=== PATIENT | female | born 1945 | race Caucasian/White ===

== ENCOUNTER 2023-04-16 21:31 | Observation (INO) | payer MEDICARE, SELFPAY ==
[2023-04-16] VITALS (12 sets, daily range): BP systolic 127–165; BP diastolic 47–62; PULSE 81–98; RESP 14–24; TEMP 36.7; O2SAT 98–100
[2023-04-16 22:12] LABS: Basophils Absolute Auto 0.1 K/mm3 (0.0-0.1); Eosinophils Absolute Auto 0.5 K/mm3 (0-0.3); Eosinophils Percent Auto 7.1 % (0-4.4); Hematocrit 23.9 % (37.0-47.0); Immature Granulocyte Absolute 0.01 K/mm3 (0.00-0.031); Immature Granulocyte Percent A 0.1 % (0-0.5); Lymphocytes Absolute Auto 2.25 K/mm3 (0.9-3.2); Lymphocytes Percent Auto 33.4 % (18.3-44.2); Mean Corpuscular HGB Conc 25.5 g/dl (32-36); Mean Corpuscular Hemoglobin 15.9 pg (26-34); Mean Corpuscular Volume 62.4 fl (80-100); Mean Platelet Volume 9.6 fl (7.4-10.4); Monocytes Absolute Auto 0.8 K/mm3 (0.1-0.6); Monocytes Percent Auto 11.9 % (2.6-8.5); Neutrophils Absolute Auto 3.1 K/mm3 (1.3-6.7); Neutrophils Percent Auto 46.5 % (45.5-73.1); Nucleated Red Blood Cells Perc 0.3 % (0.0-0.2); Platelet Count Result 569 k/mm3 (150-375); Red Blood Count 3.83 M/mm3 (4.2-5.4); Red Cell Distribution Width 21.7 % (11.5-14.5); White Blood Count 6.7 K/mm3 (4.5-10.0)
[2023-04-16 22:16] LABS: Hemoglobin 6.1 g/dL (12.0-15.0)
[2023-04-16 22:22] LABS: Prothrombin Time 13.1 Seconds (11.1-14.7)
[2023-04-16 22:23] LABS: Partial Thromboplastin Time 28.1 SECONDS (22.3-36.8)
[2023-04-16 22:29] LABS: Anisocytosis 2+ (NORMAL); Hypochromasia 2+ (NORMAL); Microcytosis 1+ (NORMAL); Ovalocytes 1+ (NORMAL); Platelet Estimate Increased (Adequate); Schistocytes Rare (NORMAL); Target Cells 1+ (NORMAL)
[2023-04-16 22:40] LABS: Alanine Aminotransferase 22 U/L (6-35); Alkaline Phosphatase 88 U/L (38-126); Anion Gap 6 mmol/L (8-16); Aspartate Amino Transferase 31 U/L (14-36); Bilirubin,Total 0.2 mg/dL (0.2-1.3); Blood Urea Nitrogen 18 mg/dL (7-17); Calcium 8.7 mg/dL (8.4-10.2); Carbon Dioxide 25 mmol/L (22-30); Chloride 107 mmol/L (98-107); Estimated CRCL calculation 58 ml/min; Estimated Glomerular Filt Rate > 60; Glucose 106 mg/dL (65-110); Potassium 4.1 mmol/L (3.4-5.0); Sodium 138 mmol/L (137-145)
--- NOTE | 2023-04-16 22:44 | ECG_ITS ---
Measurements Intervals [place] Rate: 88 P: 11 VA: 168 QRS: 30 QRSD: 125 T: 52 QT: 380 QTc: 461 Interpretive Statements SINUS RHYTHM WITH SINUS ARRHYTHMIA POSSIBLE LEFT ATRIAL ENLARGEMENT [-0.1mV P-WAVE IN V1/V2] RIGHT BUNDLE BRANCH BLOCK [120+ ms QRS DURATION, UPRIGHT V1, 40+ ms S IN I/aVL/V4/V5/V6] ABNORMAL ECG NO PREVIOUS ECG AVAILABLE FOR COMPARISON Electronically Signed On 04-17-2023 9:37:47 CDT by Migel Boyd M.D.
--- NOTE | 2023-04-16 22:58 | PC.NURSE ---
added on pt. blood work
--- NOTE | 2023-04-16 23:03 | ED.RECABL ---
HPI - Recheck/Abnormal Lab/Rx General Chief Complaint: Recheck/Abnormal Lab/Rx <NACHO Anguiano Last Filed: 04/17/23 00:26> Stated Complaint: my doctor said i need blood <NACHO Anguiano Last Filed: 04/17/23 00:26> Time Seen by Provider: 04/16/23 22:02 <NACHO Anguiano Last Filed: 04/17/23 00:26> Source: patient <NACHO Anguiano Last Filed: 04/17/23 00:26> Mode of arrival: ambulatory <NACHO Anguiano Last Filed: 04/17/23 00:26> Limitations: no limitations <NACHO Anguiano Last Filed: 04/17/23 00:26> History of Present Illness HPI narrative: Patient is a 78-year-old female who presents to the ED with report of abnormal labs. Patient saw a new PCP today and had basic blood work obtained, which showed low hemoglobin. She was then referred here for further evaluation. Patient reports she has had dyspnea with exertion intermittently for the last 1 year or so. She also reports having intermittent dizziness and lightheadedness, no significant aggravating or alleviating factors to this. She does not routinely follow with a primary care doctor. She states she last had blood work performed last September, but never heard the results of this. Patient denies any recent bleeding, denies rectal bleeding, melena, hematuria, epistaxis, vaginal bleeding. She has never required blood transfusion in the past. She is not on any blood thinners. Patient has had several previous colonoscopies. She states that she had a history of hereditary polyps, but last had a colonoscopy around 7 years ago and had no polyps at that time. Denies any abdominal pain, nausea, vomiting, chest pain, fevers. Patient has remote history of spontaneous intracranial hemorrhage which was treated at [facility]. <NACHO Anguiano Last Filed: 04/17/23 00:26> Related Data Home Medications: Home Medications Medication Instructions Recorded Confirmed acetaminophen 500 mg tablet 500 mg PO Q6H PRN Pain 04/16/23 04/17/23 (Tylenol Extra Strength) ascorbic acid (vitamin C) 1,000 mg 1 g PO DAILY 04/16/23 04/17/23 capsule calcium carbonate 600 mg-vitamin 1 tablet PO DAILY 04/16/23 04/17/23 D3 10 mcg (400 unit) chewable tablet (Calcium 600 with Vitamin D3) cetirizine 10 mg capsule (Allergy 10 mg PO DAILY 04/16/23 04/17/23 Relief (cetirizine)) fish oil-dha-epa 1,200 mg-144 1 cap PO DAILY 04/16/23 04/17/23 mg-216 mg capsule vitamin E (dl, acetate) 180 mg 180 mg PO DAILY 04/16/23 04/17/23 (400 unit) capsule omeprazole 20 mg capsule,delayed 20 mg PO DAILY 04/17/23 04/17/23 release <Michelle Darnell PA-C - Last Filed: 04/17/23 00:26> Allergies/Adverse Reactions: Allergies Allergy/AdvReac Type Severity Reaction Status Date / Time No Known Allergies Allergy Unverified 04/16/23 13:06 <Michelle Darnell PA-C - Last Filed: 04/17/23 00:26> Review of Systems Review of Systems: CONSTITUTIONAL: Denies fever, chills, or sweats. ENT: See HPI. CARDIOVASCULAR: Denies chest pain, palpitations, or edema. RESPIRATORY: See HPI. GASTROINTESTINAL: See HPI. GENITOURINARY: Denies dysuria or hematuria. SKIN: Denies rash or itching. MUSCULOSKELETAL: Denies back pain, joint pain, or myalgia. NEUROLOGIC: See HPI. <Michelle Darnell PA-C - Last Filed: 04/17/23 00:26> All systems reviewed & are unremarkable except as noted in HPI and below <NACHO Anguiano Last Filed: 04/17/23 00:26> [facility] Past Medical History Medical History: Medical History (Updated 04/17/23 @ 01:13 by Duane Skaggs MD) Allergies Arthritis Brain bleed Breast cancer GERD (gastroesophageal reflux disease) History of breast cancer in adulthood History of cerebral hemorrhage <NACHO Anguiano Last Filed: 04/17/23 00:26> Surgical History Surgical History: Surgical History (Re
[2023-04-16 23:30] LABS: Iron 18 ug/dL (37-170)
[2023-04-16 23:34] LABS: Lactate Dehydrogenase 182 U/L (120-246)
[2023-04-16 23:39] LABS: Percent Iron Saturation 4 % (20-50)
[2023-04-16 23:40] LABS: NT Pro B Type Natriuretic Pept 529 pg/mL (19.9-100); Troponin I < 0.012 ng/mL (0.000-0.034)
--- NOTE | 2023-04-16 23:40 | PM.IMHP ---
H&P: HPI History of Present Illness Date/Time: 04/16/23 23:40 Chief Complaint: Low hemoglobin Narrative: This is a 78-year-old female with known significant past medical history patient presents to the emergency room after lab work demonstrated a low hemoglobin of 6 was asked by her primary care physician to come to the hospital. Patient noted that she has been fatigued, tired, decreased stamina, shortness of breath at mild exertion, denies any melena any bright red blood per rectum on no coffee-ground emesis no hematemesis no changes in bowel habits. Preliminary workup was significant for hemoglobin of 6 hematocrit 23 MCV 62. Patient is being admitted for further evaluation management and treatment. Review of Systems Review of Systems: Low hemoglobin, fatigue, decreased stamina shortness of breath with mild activity Constitutional: Constitutional: Denies chills, Reports fatigue, Denies fever(s), Denies frequent falls, Reports lethargy, Denies malaise, Denies night sweats and Denies poor appetite Eyes: Eyes: Denies change in vision ENT: Denies dysphagia, Denies vertigo, Denies dizziness and Denies odynophagia Cardiovascular: Cardiovascular: Denies chest pain, Denies leg edema, Denies radiating jaw, neck or arm pain, Denies palpitations and Reports dyspnea on exertion Respiratory: Respiratory: Denies chest congestion, Denies cough and Denies excessive phlegm production Gastrointestinal: Gastrointestinal: Denies abdominal pain, Denies dyspepsia, Denies heartburn, Denies diarrhea, Denies nausea and Denies vomiting Genitourinary: Genitourinary: Denies dysuria Musculoskeletal: Musculoskeletal: Denies back pain and Denies myalgias Integumentary/Breasts: Skin/Breast: Denies rash Neurologic: Denies focal weakness and Denies Sensory deficit (Neuro) Psychiatric: Psychiatric: Reports no additional psychiatric complaints and Reports as per HPI Endocrine: Endocrine: Denies cold intolerance, Denies flushing, Denies heat intolerance, Denies polyphagia, Denies polydipsia and Denies palpitations Hematologic/Lymphatic: Hematologic/Lymphatic: Reports no additional hematologic/lymphatic complaints, Reports as per HPI, Denies easy bleeding, Denies easy bruising and Denies lymphadenopathy Allergic/Immunologic: Allergic/Immunologic: Reports no additional allergic/immunologic complaints and Reports as per HPI [facility] Past Medical History Medical History (Updated 04/17/23 @ 01:13 by Duane Skaggs MD) Allergies Arthritis Brain bleed Breast cancer GERD (gastroesophageal reflux disease) History of breast cancer in adulthood History of cerebral hemorrhage Surgical History Surgical History H/O: hysterectomy History of bunionectomy History of cataract removal with insertion of prosthetic lens Family History Family History (Updated 04/16/23 @ 12:58 by Christiana Cohen CMA) Father Cancer Mother Cerebrovascular accident Social History Social History Smoking status: Former smoker Additional smoking assessment comments: smoked only 1 year when she was 17 Alcohol intake: never Substance use: never Substance use type: does not use Lack of Transportation: No Lack of Food: Never True Current Housing: I Have Housing Concerned About Future Housing: No Difficulty Paying Gas/Electric Bills: No Difficulty Paying for Meds: No Currently Unemployed: No Education: High School Diploma/GED Difficulty w/ Childcare or Family Care: No Living arrangements: alone Spiritual care concerns: No Agree to blood products: Yes Meds Home Medications and Allergies Home Medications Medication Instructions Recorded Confirmed Type acetaminophen 500 mg tablet 500 mg PO Q6H PRN Pain 04/16/23 04/17/23 History (Tylenol Extra Strength) ascorbic acid (vitamin C) 1,000 mg 1 g PO DAILY 04/16/23 0
[2023-04-16 23:41] LABS: Transferrin 353 mg/dL (206-381)
[2023-04-17] VITALS (13 sets, daily range): BP systolic 119–144; BP diastolic 41–55; PULSE 75–91; RESP 14–20; TEMP 36.3–37.1; O2SAT 97–100
[2023-04-17 00:06] LABS: Ferritin 3.85 ng/mL (11.1-264)
--- NOTE | 2023-04-17 00:33 | ADMGEN ---
This patient, Mona Mann, was admitted to Medical Room 244-. Patient/family oriented to hospital policies and general routines including ID bracelet, bed and alarms, visiting hours, pain management, procedures, bathroom and other care routines, personal items, smoking policy, room service/diet, and visiting hours. Information on how to activate the Rapid Response Team has been discussed. Patient/Family are encouraged to report perceived risks to care and to ask questions if they do not understand what they are told or what they should do.
[2023-04-17] MEDS: SODIUM CHLORIDE 0.9% IV 250 ML 30 ML IV CONT (00:49)
[2023-04-17] MEDS: ACETAMINOPHEN 500 MG TABLET 1000 MG PO ×3 (03:33→16:51)
[2023-04-17] MEDS: LORATADINE 10 MG TABLET PO ×2 (06:35→08:17)
[2023-04-17 08:02] LABS: Hematocrit 30.2 % (37.0-47.0); Hemoglobin 8.5 g/dL (12.0-15.0)
[2023-04-17] MEDS: PANTOPRAZOLE 40 MG TABLET PO (08:16)
[2023-04-17] MEDS: ASCORBIC ACID 500 MG TABLET 1000 MG PO (08:16)
[2023-04-17] MEDS: VITAMIN E 400 UNIT CAPSULE PO (08:17)
--- NOTE | 2023-04-17 10:33 | PM.IMPN ---
Progress Note: A&P Assessment and Plan (1) Hypochromic microcytic anemia: Code(s): D50.9 - Iron deficiency anemia, unspecified Status: Acute Assessment and Plan: Hemoglobin stable after 2 units PRBC transfusion Iron studies in progress Transfuse as needed to keep hemoglobin above 7 GI consulted Continue PPI (2) GERD (gastroesophageal reflux disease): Code(s): K21.9 - Gastro-esophageal reflux disease without esophagitis Status: Acute Assessment and Plan: PPI Subjective Date/time seen: 04/17/23 10:33 Interval history: Patient currently asymptomatic Review of Systems Review of Systems: Low hemoglobin, fatigue, decreased stamina shortness of breath with mild activity Constitutional: Constitutional: Denies chills, Reports fatigue, Denies fever(s), Denies frequent falls, Reports lethargy, Denies malaise, Denies night sweats and Denies poor appetite Eyes: Eyes: Denies change in vision ENT: Denies dysphagia, Denies vertigo, Denies dizziness and Denies odynophagia Cardiovascular: Cardiovascular: Denies chest pain, Denies leg edema, Denies radiating jaw, neck or arm pain, Denies palpitations and Reports dyspnea on exertion Respiratory: Respiratory: Denies chest congestion, Denies cough and Denies excessive phlegm production Gastrointestinal: Gastrointestinal: Denies abdominal pain, Denies dyspepsia, Denies heartburn, Denies diarrhea, Denies nausea and Denies vomiting Genitourinary: Genitourinary: Denies dysuria Musculoskeletal: Musculoskeletal: Denies back pain and Denies myalgias Integumentary/Breasts: Skin/Breast: Denies rash Neurologic: Denies focal weakness and Denies Sensory deficit (Neuro) Psychiatric: Psychiatric: Reports no additional psychiatric complaints and Reports as per HPI Endocrine: Endocrine: Denies cold intolerance, Denies flushing, Denies heat intolerance, Denies polyphagia, Denies polydipsia and Denies palpitations Hematologic/Lymphatic: Hematologic/Lymphatic: Reports no additional hematologic/lymphatic complaints, Reports as per HPI, Denies easy bleeding, Denies easy bruising and Denies lymphadenopathy Allergic/Immunologic: Allergic/Immunologic: Reports no additional allergic/immunologic complaints and Reports as per HPI Exam Narrative: Patient is laying in bed Const: General: comfortable, no acute distress, well developed, alert, awake and average body habitus Nutritional Appearance: average body habitus Orientation/consciousness: patient oriented x3 Other: Generalized pallor HENMT: Head: normal to inspection, normocephalic and atraumatic Ears: hearing grossly normal bilaterally Face/Nose/Sinus: normal facial exam Face and sinus: normal facial exam Eyes: General: appearance normal, both eyes and all related structures Pupils: Equal, round and reactive pupils present EOM: EOMs intact bilaterally Neck: Neck: full ROM, no lymphadenopathy and no JVD Thyroid: thyroid normal Lymphatic: no lymphadenopathy noted Resp: Effort & Inspection: normal respiratory effort and able to speak in complete sentences Auscultation: clear to auscultation bilaterally Cardio: Jugular venous distension: no JVD Rate: regular rate Rhythm: regular rhythm Heart sounds: S1 normal heart sound present and S2 normal heart sound present GI: GI Palp: Yes Soft to palpation and Yes No hepatosplenomegaly present : General: Yes deferred Skin: Rashes: no rashes Wounds: no wounds Neuro: General: patient oriented x3 and CN's II-XI intact bilaterally Cranial nerves: Yes CN's II-XII intact bilaterally and Yes Equal, round and reactive pupils present Cognition (Neuro): normal cognition Speech: normal speech Gait exam (Neuro): Unable to assess gait Motor exam (neuro): 5/5 motor strength present throughout Extrem: General: normal to inspection, full ROM, no joint enlargement and no pedal edema Objective Data Vital Signs Vital Signs: Vital Signs - 24 hr /06
--- NOTE | 2023-04-17 15:27 | WPDGICN ---
Assessment and Plan Assessment and plan (1) Symptomatic anemia: Code(s): D64.9 - Anemia, unspecified Status: Acute Assessment and Plan: symptomatic and severe anemia noted that she has been taking asa in daily basis to control pain, ? gastritis, ulcers, etc will proceed with egd and colonoscopy tomorrow (2) Fatigue: Code(s): R53.83 - Other fatigue Status: Acute Assessment and Plan: from anemia (3) Intermittent lightheadedness: Code(s): R42 - Dizziness and giddiness Status: Acute Assessment and Plan: better now after treatment (4) GERD (gastroesophageal reflux disease): Code(s): K21.9 - Gastro-esophageal reflux disease without esophagitis Status: Acute Assessment and Plan: on ppi (5) Aspirin long-term use: Code(s): Z79.82 - skilled nursing (current) use of aspirin Status: Acute Assessment and Plan: hold asa use for now GI Consult Note Consult date/time: 04/17/23 15:27 Reason for consult: JAYSHREE HPI: Mona Mann is a 78 year old female with significant past medical history of gerd on nexium, tums prn and also arthritis for which she has been taking for a while tylenol and aspirin up to 3-4 times a day to control pain. She came to the emergency room after lab work by her PCP that showed low hemoglobin of 6 and was asked by her primary care physician to come to the hospital.? She has been fatigued, tired, decreased stamina, shortness of breath at mild exertion, denies any melena any bright red blood per rectum. She had colonoscopies and last one about 7 years ago.?Preliminary workup was significant for hemoglobin of 6 hematocrit 23 MCV 62. Review of Systems Constitutional: Constitutional: Reports lethargy Eyes: Eyes: Denies blurry vision ENT: Reports Normal hearing present Cardiovascular: Cardiovascular: Denies chest pain Respiratory: Respiratory: Reports dyspnea on exertion Gastrointestinal: Gastrointestinal: Denies abdominal pain Genitourinary: Genitourinary: Denies urinary incontinence Musculoskeletal: Musculoskeletal: Reports arthralgias Integumentary/Breasts: Skin/Breast: Denies rash Neurologic: Denies Abnormal speech present Psychiatric: Psychiatric: Denies anxiety [facility] Past Medical History Medical History (Updated 04/17/23 @ 15:33 by Blayne Cifuentes MD) Allergies Arthritis Aspirin long-term use Brain bleed Breast cancer GERD (gastroesophageal reflux disease) History of breast cancer in adulthood History of cerebral hemorrhage Surgical History Surgical History H/O: hysterectomy History of bunionectomy History of cataract removal with insertion of prosthetic lens Family History Family History (Updated 04/16/23 @ 12:58 by Christiana Cohen CMA) Father Cancer Mother Cerebrovascular accident Social History Social History Smoking status: Former smoker Additional smoking assessment comments: smoked only 1 year when she was 17 Alcohol intake: never Substance use: never Substance use type: does not use Lack of Transportation: No Lack of Food: Never True Current Housing: I Have Housing Concerned About Future Housing: No Difficulty Paying Gas/Electric Bills: No Difficulty Paying for Meds: No Currently Unemployed: No Education: High School Diploma/GED Difficulty w/ Childcare or Family Care: No Living arrangements: alone Spiritual care concerns: No Agree to blood products: Yes Meds Home Medications and Allergies Home Medications Medication Instructions Recorded Confirmed Type acetaminophen 500 mg tablet 500 mg PO Q6H PRN Pain 04/16/23 04/17/23 History (Tylenol Extra Strength) ascorbic acid (vitamin C) 1,000 mg 1 g PO DAILY 04/16/23 04/17/23 History capsule calcium carbonate 600 mg-vitamin 1 tablet PO
[2023-04-17] MEDS: BISACODYL 5 MG TABLET EC 20 MG PO (17:00)
[2023-04-17] MEDS: polyethylene glycoL 3350 238 GM BOTTLE PO (17:56)
[2023-04-18] VITALS (7 sets, daily range): BP systolic 123–150; BP diastolic 46–67; PULSE 75–92; RESP 15–23; TEMP 36.2–36.6; O2SAT 98–100
[2023-04-18] MEDS: ACETAMINOPHEN 500 MG TABLET 1000 MG PO (07:33)
--- NOTE | 2023-04-18 09:10 | WPDANESEPPF ---
Anes - Initial Pre Proc Eval Procedure: Operation Date: 04/18/23 11:45 Proposed Procedures p Esophagogastroduodenoscopy & Colonoscopy - Blayne Cifuentes MD Date/Time: 04/18/23 09:10 Surgeon: Shin Morales MD Pre Op Diagnosis: Symptomatic Anemia/CISSE/Lightheadedness Patient Data Age: 78 Gender: F Height: 1.63 m Weight: 75 kg Last Vital Signs Temp 36.6 C 04/18/23 06:00 Pulse 92 04/18/23 06:00 Resp 18 04/18/23 06:00 BP 123/46 L 04/18/23 06:00 Pulse Ox 98 04/18/23 08:00 O2 Del Method Room Air 04/18/23 08:00 Allergies Allergy/AdvReac Type Severity Reaction Status Date / Time No Known Allergies Allergy Unverified 04/16/23 13:06 Home Medications Medication Instructions Recorded Confirmed Type acetaminophen 500 mg tablet 500 mg PO Q6H PRN Pain 04/16/23 04/17/23 History (Tylenol Extra Strength) ascorbic acid (vitamin C) 1,000 mg 1 g PO DAILY 04/16/23 04/17/23 History capsule calcium carbonate 600 mg-vitamin 1 tablet PO DAILY 04/16/23 04/17/23 History D3 10 mcg (400 unit) chewable tablet (Calcium 600 with Vitamin D3) cetirizine 10 mg capsule (Allergy 10 mg PO DAILY 04/16/23 04/17/23 History Relief (cetirizine)) fish oil-dha-epa 1,200 mg-144 1 cap PO DAILY 04/16/23 04/17/23 History mg-216 mg capsule vitamin E (dl, acetate) 180 mg 180 mg PO DAILY 04/16/23 04/17/23 History (400 unit) capsule omeprazole 20 mg capsule,delayed 20 mg PO DAILY 04/17/23 04/17/23 History release Laboratory Tests 04/18/23 08:38 Hgb Pending Hct Pending Patient hx anesthesia problems: none Family hx anesthesia problems: none Results Review: All pre-operative results and documents have been reviewed as part of the pre-operative evaluation. [facility] Past Medical History Medical History (Updated 04/17/23 @ 15:33 by Blayne Cifuentes MD) Allergies Arthritis Aspirin long-term use Brain bleed Breast cancer GERD (gastroesophageal reflux disease) History of breast cancer in adulthood History of cerebral hemorrhage Surgical History Surgical History H/O: hysterectomy History of bunionectomy History of cataract removal with insertion of prosthetic lens Family History Family History (Updated 04/16/23 @ 12:58 by Christiana Cohen [facility]) Father Cancer Mother Cerebrovascular accident Social History Social History Smoking status: Former smoker Additional smoking assessment comments: smoked only 1 year when she was 17 Alcohol intake: never Substance use: never Substance use type: does not use Lack of Transportation: No Lack of Food: Never True Current Housing: I Have Housing Concerned About Future Housing: No Difficulty Paying Gas/Electric Bills: No Difficulty Paying for Meds: No Currently Unemployed: No Education: High School Diploma/GED Difficulty w/ Childcare or Family Care: No Living arrangements: alone Spiritual care concerns: No Agree to blood products: Yes Anes - Eval Final PreProcedure Day of Procedure 04/18/23 09:10 Patient weight: overweight Heart: regular rate and rhythm Lungs: clear to auscultation and normal air movement Airway: Mallampati scale class II Neurological: alert and oriented Last oral intake: >/= 8 hours ASA classification: III Emergent: no Anesthetic plan: proceed Anesthesia type and monitoring: general GIVS Results Review: All pre-operative results and documents have been reviewed as part of the pre-operative evaluation. Informed Consent: The patient's anesthetic plan and its attendant risks and benefits were discussed with the patient/family/POA. Questions were solicited and answers provided to the satisfaction of the patient/family/POA.
[2023-04-18 09:13] LABS: Hematocrit 33.2 % (37.0-47.0)
--- NOTE | 2023-04-18 10:29 | PM.IMPN ---
Progress Note: A&P Assessment and Plan (1) Hypochromic microcytic anemia: Code(s): D50.9 - Iron deficiency anemia, unspecified Status: Acute Assessment and Plan: Hemoglobin stable after 2 units PRBC transfusion Iron studies in progress Transfuse as needed to keep hemoglobin above 7 GI consulted Continue PPI Plan for EGD and colonoscopy today (2) GERD (gastroesophageal reflux disease): Code(s): K21.9 - Gastro-esophageal reflux disease without esophagitis Status: Acute Assessment and Plan: Continue pPI Subjective Date/time seen: 04/18/23 10:29 Interval history: No complaints at this time Review of Systems Constitutional: Constitutional: Reports lethargy Eyes: Eyes: Denies blurry vision ENT: Reports Normal hearing present Cardiovascular: Cardiovascular: Denies chest pain Respiratory: Respiratory: Reports dyspnea on exertion Gastrointestinal: Gastrointestinal: Denies abdominal pain Genitourinary: Genitourinary: Denies urinary incontinence Musculoskeletal: Musculoskeletal: Reports arthralgias Integumentary/Breasts: Skin/Breast: Denies rash Neurologic: Denies Abnormal speech present Psychiatric: Psychiatric: Denies anxiety Exam Const: General: comfortable and no acute distress HENMT: Face/Nose/Sinus: Normal nares present Eyes: General: appearance normal, both eyes and all related structures Neck: Neck: no JVD Resp: Auscultation: clear to auscultation bilaterally Cardio: Rate: regular rate Rhythm: regular rhythm GI: Inspection: non-distended GI Palp: Yes Soft to palpation and No Tenderness to palpation present (GI) Auscultation: normal bowel sounds Skin: Other: pale Neuro: General: gait normal Speech: normal speech Extrem: General: normal to inspection Psych: Mental Status: mental status grossly normal Objective Data Vital Signs Vital Signs: Vital Signs - 24 hr 04/17/23 14:40 04/17/23 19:56 04/18/23 06:00 Temperature 97.8 F 97.4 F L 97.8 F Pulse Rate 75 78 92 Respiratory Rate 14 18 18 Blood Pressure 121/48 L 144/55 H 123/46 L Pulse Oximetry 98 97 98 Oxygen Delivery 04/18/23 08:00 Temperature Pulse Rate Respiratory Rate Blood Pressure Pulse Oximetry 98 Oxygen Delivery Room Air Intake/Output Intake/Output: Intake & Output 04/15/23 04/16/23 04/17/23 04/18/23 23:59 23:59 23:59 23:59 Intake Total 1720 / 1720 Output Total 2650 / 2650 Balance -930 / -930 Meds/Results Medications: Active Medications Generic Name Dose Route Start Last Admin Trade Name Freq PRN Reason Stop Dose Admin Acetaminophen 500 mg 04/17/23 01:10 Acetaminophen 500 Mg Tablet PO Q6H PRN Pain Acetaminophen 1,000 mg 04/17/23 01:11 04/18/23 07:33 Acetaminophen 500 Mg Tablet PO 1,000 mg Q6H PRN Administration Mild Pain (1-3) or Fever Al Hydrox/Mg Hydrox/Simethicone 30 ml 04/17/23 01:11 Mag Hydrox/Al Hydrox/Simeth 30 Ml Udc PO Q6H PRN Indigestion Ascorbic Acid 1,000 mg 04/17/23 09:00 04/17/23 08:16 Ascorbic Acid 500 Mg Tablet PO 1,000 mg QAM JOSEFA Administration Calcium Carbonate 500 mg 04/17/23 09:00 04/17/23 08:16 Calcium/Vitamin D 500 Mg Tablet PO 500 mg QAM JOSEFA Administration Fish Oil 1 gm 04/17/23 09:00 04/17/23 16:51 Ozan 3 Polyunsat Fatty Acids 1 Gm Cap PO 05/17/23 08:59 Not Given DAILY JOSEFA Loratadine 10 mg 04/17/23 09:00 04/17/23 08:17 Loratadine 10 Mg Tablet PO 10 mg QAM JOSEFA Administration Ondansetron HCl 4 mg 04/17/23 01:11 Ondansetron Inj 4 Mg/2 Ml Vial IV PUSH Q6H PRN Nausea And Vomiting Pantoprazole Sodium 40 mg 04/17/23 09:00 04/17/23 08:16 Pantoprazole 40 Mg Tablet PO 40 mg QAM JOSEFA Administration Polyethylene Glycol 17 gm 04/17/23 01:11 Polyethylene Glycol 3350 17 Gm Powd.Pack PO QAM PRN Constipation Vitamin E 400 unit 04/17/23 09:00 04/17/23 08:17 Vitamin
[2023-04-18] MEDS: LACTATED RINGERS 1,000 ML 150 ML IV CONT (11:30)
--- NOTE | 2023-04-18 12:26 | SUR.OPER ---
colon start 1214 and stop 1226
--- NOTE | 2023-04-18 14:45 | PM.DS ---
DS: Admitting Diagnosis Discharge Date 04/18/23 Admitting Diagnosis Anemia DS: Discharge Diagnosis Discharge Diagnosis (1) Hypochromic microcytic anemia: Code(s): D50.9 - Iron deficiency anemia, unspecified Status: Acute DS: Summary Hospital Course Hospital Course: Patient was admitted with Anemia. Iron studies showed Iron def. anemia. 2 units PRBC were transfused after which Hb remained stable. GI was consulted. patient underwent EGD/colonoscopy. EGD showed esophageal ulcer and hiatal hernia. colonoscopy showed diverticulosis and internal hemorrhoids. patient ok to be discharged home with PPI BID. f/u EGD on 3-4 months to see resolution of ulcers. Time Spent with Patient Time attestation: Total time spent providing and/or coordinating discharge services: DS: Data Data Completed and Pending Pending studies at discharge: Pending at discharge 04/18/23 12:27 Surgical [PTH] Routine Labs on day of discharge: Labs from last 24 hours 04/18/23 08:38 Hgb 9.0 L Hct 33.2 L Discharge Plan Discharge Consulting providers: Michelle Darnell; Blayne Cifuentes Discharging Clinician: Shin Morales Anticipated Discharge Date/Time: 04/18/23 14:44 Patient Disposition: Home, Self-Care Activity: no preference Diet: heart healthy Patient Instructions: Antibiotic Form Stand Alone Forms: General Discharge Information Follow-up/Referrals: Blayne Cifuentes MD [Physician] - Jc Crespo DO [Primary Care Provider] - Discharge Medications: New pantoprazole 40 mg Tablet,Delayed Release (Dr/Ec) 40 mg PO Q12HR Qty: 60 0RF Continued acetaminophen [Tylenol Extra Strength] 500 mg tablet 500 mg PO Q6H PRN (Reason: Pain) Allergy Relief (cetirizine) 10 mg capsule 10 mg PO DAILY Calcium 600 with Vitamin D3 600 mg-10 mcg (400 unit) tablet,chewable 1 tablet PO DAILY ascorbic acid (vitamin C) 1,000 mg capsule 1 g PO DAILY vitamin E (dl, acetate) 180 mg (400 unit) capsule 180 mg PO DAILY fish oil-dha-epa 1,200-144-216 mg capsule 1 cap PO DAILY omeprazole 20 mg Capsule,Delayed Release(Dr/Ec) 20 mg PO DAILY Date of admission: 06/06/23 23:12 Primary Care Provider: Jc Crespo Admitting Provider: Duane Skaggs V. Attending physician on admission: Shin Morales Condition: Stable
== END 2023-04-18 15:10 | disposition home or self-care (01) ==
LOC: ANHED 23:12 → ANH2MED 23:51
PROVIDERS: Emergency Medicine; Internal Medicine Gastroenterology; Admitting Provider Internal Medicine; Emergency Provider Physician Assistant; PCP Internal Medicine; Visit Provider Hospitalist
PROC: 0DJ08ZZ Inspection of Upper Intestinal Tract, Via Natural or Artificial Opening Endoscopic (ICD-10-PCS; CPT 43235; principal; 2023-04-18 11:45)
DX: K22.10 Ulcer of esophagus without bleeding (principal); K44.9 Diaphragmatic hernia without obstruction or gangrene; K25.9 Gastric ulcer, unspecified as acute or chronic, without hemorrhage or perforation; K57.30 Diverticulosis of large intestine without perforation or abscess without bleeding; K64.8 Other hemorrhoids; D50.9 Iron deficiency anemia, unspecified; K21.9 Gastro-esophageal reflux disease without esophagitis; R06.00 Dyspnea, unspecified; R53.83 Other fatigue; R42 Dizziness and giddiness; R79.89 Other specified abnormal findings of blood chemistry; R94.31 Abnormal electrocardiogram [ECG] [EKG]; Z86.79 Personal history of other diseases of the circulatory system; Z87.891 Personal history of nicotine dependence; Z79.1 Long term (current) use of non-steroidal anti-inflammatories (NSAID); E66.3 Overweight; Z68.28 Body mass index [BMI] 28.0-28.9, adult; Z79.82 Long term (current) use of aspirin; Z79.899 Other long term (current) drug therapy; Z82.3 Family history of stroke
CPT/HCPCS: 43239; 45378; 36415; 36430; 80053; 80061; 82172; 82607; 82728; 82746; 83540; 83550; 83615; 83880; 84443; 84466; 84484; 85014; 85018; 85025; 85610; 85730; 86850; 86900; 86901; 86923; 87081; 88305; 88342; 93005; 99285; A9270; G0378; J2704; J7050; J7120; P9016

== ENCOUNTER 2023-04-25 07:35 | Outpatient (RCR) | payer MEDICARE, SELFPAY ==
--- NOTE | 2023-04-25 10:33 | PTOPEVDC ---
Assessment and note entered by Baylee Hernandez, PT, DPT Thank you for referring Mona Mann to [facility].? An evaluation has been completed. No further treatment is needed. Evaluation Information Assessment Status Evaluation Diagnosis pain in R leg, pain in L leg Onset 1 month Subjective Information Pt states she is doing much better now, she states after going to the doctor for her leg pain she found out she needed a blood transfusion and has been doing so much better since this. She states she is slowly progressing back to her 3 mile walks , she is currently at 0.5 miles, but two weeks ago could only walk 10 ft. She also reports intermittent low back pain, that increases while standing. Reported Pain Level Pain Score 4: Self Report Assessment PT Clinical Summary Mona presents to therapy today for her initial evaluation with a diagnosis of miguelina leg pain and reports of low back pain. Today she demonstrates decreased hip flexion limited by pain, decreased BLE strength throughout, gait deviations, and decreased LE stability during functional movements . She was educated on an HEP, reviewed bed mobility, and reviewed floor to stand transfers. Skilled therapy services are indicated to improve LE strength, core strength, decreased tenderness to palpation and to return to PLOF. Updated 04/25/23: Pt called and states she would like to be discharged instead of doing therapy. Plan of Care PT Services Indicated Yes Treatment Frequency and evaluate and discharge Duration
== END 2023-04-25 13:10 | disposition home or self-care (01) ==
LOC: ANHGOSHPT 07:35
PROVIDERS: PCP Internal Medicine; Visit Provider Internal Medicine
DX: M79.604 Pain in right leg (principal); M79.605 Pain in left leg
CPT/HCPCS: 97110; 97161; 97530

== ENCOUNTER 2023-05-13 15:16 | Outpatient (CLI) | payer MEDICARE, SELFPAY ==
[2023-05-13 19:18] LABS: Basophils Absolute Auto 0.1 K/mm3 (0.0-0.1); Basophils Percent Auto 0.8 % (0.2-1.2); Eosinophils Absolute Auto 0.2 K/mm3 (0-0.3); Eosinophils Percent Auto 3.3 % (0-4.4); Hematocrit 32.4 % (37.0-47.0); Immature Granulocyte Absolute 0.01 K/mm3 (0.00-0.031); Immature Granulocyte Percent A 0.2 % (0-0.5); Lymphocytes Absolute Auto 2.05 K/mm3 (0.9-3.2); Lymphocytes Percent Auto 30.8 % (18.3-44.2); Mean Corpuscular HGB Conc 27.8 g/dl (32-36); Mean Corpuscular Hemoglobin 19.4 pg (26-34); Mean Corpuscular Volume 69.8 fl (80-100); Mean Platelet Volume 9.3 fl (7.4-10.4); Monocytes Absolute Auto 0.8 K/mm3 (0.1-0.6); Monocytes Percent Auto 12.3 % (2.6-8.5); Neutrophils Absolute Auto 3.5 K/mm3 (1.3-6.7); Neutrophils Percent Auto 52.6 % (45.5-73.1); Platelet Count Result 482 k/mm3 (150-375); Red Blood Count 4.64 M/mm3 (4.2-5.4); Red Cell Distribution Width 28.4 % (11.5-14.5); White Blood Count 6.7 K/mm3 (4.5-10.0)
[2023-05-13 19:24] LABS: Appearance Urine Clear (Clear); Bacteria Urine None Seen /hpf; Bilirubin Urine Negative (Negative); Blood Urine Negative (Negative); Color Urine Yellow (Yellow); Glucose Urine UA Negative (Negative); Ketones Urine Negative (Negative); Leukocyte Esterase Ur 2+ LEU/UL (NEGATIVE); Nitrate Urine Negative (Negative); Non Pathogenic Casts 0-2; Protein Urine Negative (Negative); RBC Urine 0-2 /hpf (0-2); Specific Grav Ur 1.024 (1.001-1.035); Squamous Epithelial Cell Urine None seen /hpf (Few); Urobilinogen Urine 0.2 mg/dL (<2.0); WBC Urine 51-100 /hpf (0-3)
[2023-05-13 19:26] LABS: Add Urine Microscopic? YES
[2023-05-13 19:53] LABS: Alanine Aminotransferase 30 U/L (6-35); Albumin Level 4.2 g/dL (3.5-5.1); Alkaline Phosphatase 86 U/L (38-126); Anion Gap 9 mmol/L (8-16); Aspartate Amino Transferase 42 U/L (14-36); Bilirubin,Total 0.3 mg/dL (0.2-1.3); Blood Urea Nitrogen 19 mg/dL (7-17); Calcium 9.2 mg/dL (8.4-10.2); Carbon Dioxide 26 mmol/L (22-30); Chloride 104 mmol/L (98-107); Estimated Glomerular Filt Rate > 60; Glucose 106 mg/dL (65-110); Potassium 4.4 mmol/L (3.4-5.0); Sodium 139 mmol/L (137-145)
[2023-05-13 20:12] LABS: Ferritin 4.25 ng/mL (11.1-264); Platelet Estimate Increased (Adequate)
[2023-05-13 20:14] LABS: Schistocytes Rare (NORMAL)
[2023-05-13 20:15] LABS: Anisocytosis 3+ (NORMAL); Hypochromasia 1+ (NORMAL)
[2023-05-13 20:16] LABS: Microcytosis 2+ (NORMAL)
== END 2023-05-13 15:17 | disposition home or self-care (01) ==
LOC: ANHGOSHLAB 15:18
PROVIDERS: PCP Internal Medicine; Visit Provider Internal Medicine
DX: D50.9 Iron deficiency anemia, unspecified (principal); R06.09 Other forms of dyspnea; R53.83 Other fatigue
CPT/HCPCS: 36415; 80053; 81001; 82728; 85025

== ENCOUNTER 2023-06-10 07:02 | Day surgery (SDC) | payer MEDICARE, SELFPAY ==
[2023-05-23 14:49] VITALS: BMI 28.3
[2023-05-27 11:28] VITALS: BMI 27.4
[2023-06-10 08:27] VITALS: BP 143/57; PULSE 70; RESP 16; TEMP 36.3; O2SAT 100
[2023-06-10] MEDS: LACTATED RINGERS 1,000 ML 150 ML IV CONT (08:29)
--- NOTE | 2023-06-10 08:41 | WPDANESEPPF ---
Anes - Initial Pre Proc Eval Procedure: Operation Date: 06/10/23 09:30 Proposed Procedures p Esophagogastroduodenoscopy - Blayne Cifuentes MD Date/Time: 06/10/23 08:41 Surgeon: Blayne Cifuentes MD Pre Op Diagnosis: Esophageal/Gastric Ulcer Patient Data Age: 78 Gender: F Height: 1.63 m Weight: 73.1 kg Last Vital Signs Temp 36.3 C L 06/10/23 08:27 Pulse 70 06/10/23 08:27 Resp 16 06/10/23 08:27 BP 143/57 H 06/10/23 08:27 Pulse Ox 100 06/10/23 08:27 O2 Del Method Room Air 06/10/23 08:27 Allergies Allergy/AdvReac Type Severity Reaction Status Date / Time No Known Allergies Allergy Verified 06/10/23 08:08 Home Medications Medication Instructions Recorded Confirmed Type acetaminophen 500 mg tablet 500 mg PO Q6H PRN Pain 04/16/23 06/10/23 History (Tylenol Extra Strength) ascorbic acid (vitamin C) 1,000 mg 1 g PO DAILY 04/16/23 06/10/23 History capsule calcium carbonate 600 mg-vitamin 1 tablet PO DAILY 04/16/23 06/10/23 History D3 10 mcg (400 unit) chewable tablet (Calcium 600 with Vitamin D3) cetirizine 10 mg capsule (Allergy 10 mg PO DAILY 04/16/23 06/10/23 History Relief (cetirizine)) fish oil-dha-epa 1,200 mg-144 1 cap PO DAILY 04/16/23 06/10/23 History mg-216 mg capsule vitamin E (dl, acetate) 180 mg 180 mg PO DAILY 04/16/23 06/10/23 History (400 unit) capsule omeprazole 20 mg capsule,delayed 20 mg PO DAILY 04/17/23 06/10/23 History release pantoprazole 40 mg tablet,delayed 40 mg PO Q12HR #60 tabs 04/18/23 06/10/23 Rx release Patient hx anesthesia problems: none Family hx anesthesia problems: none Results Review: All pre-operative results and documents have been reviewed as part of the pre-operative evaluation. [facility] Past Medical History Medical History Allergies Arthritis Aspirin long-term use Brain bleed Breast cancer GERD (gastroesophageal reflux disease) History of breast cancer in adulthood History of cerebral hemorrhage Peptic ulcer disease Surgical History Surgical History H/O: hysterectomy History of bunionectomy History of cataract removal with insertion of prosthetic lens Family History Family History Father Cancer Mother Cerebrovascular accident Social History Social History Smoking status: Never smoker Additional smoking assessment comments: smoked only 1 year when she was 17 Alcohol intake: never Substance use: never Substance use type: does not use Lack of Transportation: No Lack of Food: Never True Current Housing: I Have Housing Concerned About Future Housing: No Difficulty Paying Gas/Electric Bills: No Difficulty Paying for Meds: No Currently Unemployed: No Education: High School Diploma/GED Difficulty w/ Childcare or Family Care: No Living arrangements: alone Spiritual care concerns: No Agree to blood products: Yes Anes - Eval Final PreProcedure Day of Procedure 06/10/23 08:41 Patient weight: overweight Heart: regular rate and rhythm Lungs: clear to auscultation Airway: Mallampati scale class II Neurological: alert and oriented Last oral intake: >/= 8 hours ASA classification: III Emergent: no Anesthetic plan: proceed Anesthesia type and monitoring: general GIVS and standard monitoring Results Review: All pre-operative results and documents have been reviewed as part of the pre-operative evaluation. Informed Consent: The patient's anesthetic plan and its attendant risks and benefits were discussed with the patient/family/POA. Questions were solicited and answers provided to the satisfaction of the patient/family/POA.
--- NOTE | 2023-06-10 09:09 | PM.HPGS ---
History of Present Illness History of Present Illness Consent: Risks, benefits, and alternatives have been discussed and questions answered. Patient agrees to proceed with procedure. Chief complaint: Esophageal/Gastric Ulcer Narrative: Mona Mann is a 78 year old female with gastric ulcer/esophagitis when she was using daily aspirin and caused anemia, she completed treatment with ppi and now here to assess healing with egd, no h pylori Review of Systems Constitutional: Constitutional: Denies headache(s) and Denies weakness Eyes: Eyes: Denies blurry vision ENT: Reports Normal hearing present, Denies headache(s) and Denies neck pain Cardiovascular: Cardiovascular: Denies chest pain and Denies dyspnea Respiratory: Respiratory: Denies dyspnea Gastrointestinal: Gastrointestinal: Reports no additional gastrointestinal complaints Genitourinary: Genitourinary: Denies dysuria Musculoskeletal: Musculoskeletal: Denies neck pain Integumentary/Breasts: Skin/Breast: Denies dry skin Neurologic: Reports Normal hearing present, Denies headache(s) and Denies weakness Psychiatric: Psychiatric: Denies anxiety Endocrine: Endocrine: Denies change in body appearance Hematologic/Lymphatic: Hematologic/Lymphatic: Denies easy bleeding Allergic/Immunologic: Allergic/Immunologic: Denies urticaria PMFSH Past Medical History Medical History Allergies Arthritis Aspirin long-term use Brain bleed Breast cancer GERD (gastroesophageal reflux disease) History of breast cancer in adulthood History of cerebral hemorrhage Peptic ulcer disease Surgical History Surgical History H/O: hysterectomy History of bunionectomy History of cataract removal with insertion of prosthetic lens Family History Family History Father Cancer Mother Cerebrovascular accident Social History Social History Smoking status: Never smoker Additional smoking assessment comments: smoked only 1 year when she was 17 Alcohol intake: never Substance use: never Substance use type: does not use Lack of Transportation: No Lack of Food: Never True Current Housing: I Have Housing Concerned About Future Housing: No Difficulty Paying Gas/Electric Bills: No Difficulty Paying for Meds: No Currently Unemployed: No Education: High School Diploma/GED Difficulty w/ Childcare or Family Care: No Living arrangements: alone Spiritual care concerns: No Agree to blood products: Yes Meds Home Medications and Allergies Home Medications Medication Instructions Recorded Confirmed Type acetaminophen 500 mg tablet 500 mg PO Q6H PRN Pain 04/16/23 06/10/23 History (Tylenol Extra Strength) ascorbic acid (vitamin C) 1,000 mg 1 g PO DAILY 04/16/23 06/10/23 History capsule calcium carbonate 600 mg-vitamin 1 tablet PO DAILY 04/16/23 06/10/23 History D3 10 mcg (400 unit) chewable tablet (Calcium 600 with Vitamin D3) cetirizine 10 mg capsule (Allergy 10 mg PO DAILY 04/16/23 06/10/23 History Relief (cetirizine)) fish oil-dha-epa 1,200 mg-144 1 cap PO DAILY 04/16/23 06/10/23 History mg-216 mg capsule vitamin E (dl, acetate) 180 mg 180 mg PO DAILY 04/16/23 06/10/23 History (400 unit) capsule omeprazole 20 mg capsule,delayed 20 mg PO DAILY 04/17/23 06/10/23 History release pantoprazole 40 mg tablet,delayed 40 mg PO Q12HR #60 tabs 04/18/23 06/10/23 Rx release Allergies Allergy/AdvReac Type Severity Reaction Status Date / Time No Known Allergies Allergy Verified 06/10/23 08:08 Vital Signs Vital Signs - 24 hr 06/10/23 08:27 Temperature 97.4 F L Pulse Rate 70 Respiratory Rate 16 Blood Pressure 143/57 H Pulse Oximetry 100 Oxygen Delivery Room Air Exam Const: General: comf
[2023-06-10 09:20] VITALS: BP 121/49; PULSE 91; RESP 16; O2SAT 97
[2023-06-10 09:30] VITALS: BP 128/88; PULSE 83; RESP 20; O2SAT 98
[2023-06-10 09:40] VITALS: BP 116/59; PULSE 74; RESP 20; O2SAT 100
--- NOTE | 2023-06-10 10:26 | WPDANESPN ---
Anes - Prog Note Post-Op Date/Time: 06/10/23 10:26 Cardiovascular status: normal Respiratory status: normal Airway patency: baseline Mental status: baseline Post-Op hydration status: normal Vital Signs: Last Vital Signs Temp 36.3 C L 06/10/23 08:27 Pulse 74 06/10/23 09:40 Resp 20 06/10/23 09:40 BP 116/59 L 06/10/23 09:40 Pulse Ox 100 06/10/23 09:40 O2 Del Method Room Air 06/10/23 09:40 Pain Score (VAS): 0/10 I/O: Intake & Output 06/09/23 06/10/23 06/10/23 23:59 07:59 15:59 Intake Total 500 Balance 500 Patient Feedback: Patient satisfied with anesthetic care.
== END 2023-06-10 09:55 | disposition home or self-care (01) ==
PROVIDERS: PCP Internal Medicine; Visit Provider Internal Medicine Gastroenterology
PROC: 0DJ08ZZ Inspection of Upper Intestinal Tract, Via Natural or Artificial Opening Endoscopic (ICD-10-PCS; CPT 43235; principal; 2023-06-10 09:30)
DX: K21.9 Gastro-esophageal reflux disease without esophagitis (principal); K21.00 Gastro-esophageal reflux disease with esophagitis, without bleeding; K44.9 Diaphragmatic hernia without obstruction or gangrene; K29.70 Gastritis, unspecified, without bleeding
CPT/HCPCS: 43239

== ENCOUNTER 2023-06-10 09:00 | Outpatient (NON) | payer MEDICARE, SELFPAY | END 2023-06-10 09:01 | disposition home or self-care (01) | LOC: ANHLAB 06-11 08:13 | PROVIDERS: PCP Internal Medicine; Visit Provider Internal Medicine Gastroenterology | DX: K21.9 Gastro-esophageal reflux disease without esophagitis (principal) | CPT/HCPCS: 88305 ==

== ENCOUNTER 2023-06-17 09:27 | Outpatient (CLI) | payer MEDICARE, SELFPAY ==
[2023-06-17 13:35] LABS: Appearance Urine Cloudy (Clear); Bacteria Urine None Seen /hpf; Bilirubin Urine Negative (Negative); Blood Urine Negative (Negative); Color Urine Yellow (Yellow); Glucose Urine UA Negative (Negative); Ketones Urine Trace mg/dL (Negative); Leukocyte Esterase Ur 2+ LEU/UL (NEGATIVE); Nitrate Urine Negative (Negative); Non Pathogenic Casts 0-2; Protein Urine Negative (Negative); RBC Urine 0-2 /hpf (0-2); Specific Grav Ur 1.007 (1.001-1.035); Squamous Epithelial Cell Urine None seen /hpf (Few); Urobilinogen Urine 0.2 mg/dL (<2.0); pH Urine 5.5 (5.0-9.0)
[2023-06-17 13:38] LABS: Add Urine Microscopic? YES
[2023-06-17 13:52] LABS: Hematocrit 38.8 % (37.0-47.0); Hemoglobin 10.8 g/dL (12.0-15.0); Mean Corpuscular HGB Conc 27.8 g/dl (32-36); Mean Corpuscular Hemoglobin 20.8 pg (26-34); Mean Corpuscular Volume 74.6 fl (80-100); Mean Platelet Volume 9.4 fl (7.4-10.4); Platelet Count Result 343 k/mm3 (150-375); Red Cell Distribution Width 27.7 % (11.5-14.5); White Blood Count 5.3 K/mm3 (4.5-10.0)
[2023-06-17 14:31] LABS: Ferritin 7.25 ng/mL (11.1-264)
== END 2023-06-17 09:28 | disposition home or self-care (01) ==
LOC: ANHGOSHLAB 09:29
PROVIDERS: PCP Internal Medicine; Visit Provider Internal Medicine
DX: D50.9 Iron deficiency anemia, unspecified (principal); R35.0 Frequency of micturition; R30.0 Dysuria; Z12.11 Encounter for screening for malignant neoplasm of colon
CPT/HCPCS: 36415; 81001; 82728; 85027; 87086

== ENCOUNTER 2023-09-30 13:53 | Outpatient (CLI) | payer MEDICARE, SELFPAY ==
[2023-09-30 14:14] LABS: Basophils Percent Auto 0.7 % (0.2-1.2); Eosinophils Absolute Auto 0.2 K/mm3 (0-0.3); Eosinophils Percent Auto 3.5 % (0-4.4); Hematocrit 45.5 % (37.0-47.0); Hemoglobin 15.3 g/dL (12.0-15.0); Immature Granulocyte Absolute 0.01 K/mm3 (0.00-0.031); Immature Granulocyte Percent A 0.2 % (0-0.5); Lymphocytes Absolute Auto 2.82 K/mm3 (0.9-3.2); Lymphocytes Percent Auto 46.5 % (18.3-44.2); Mean Corpuscular HGB Conc 33.6 g/dl (32-36); Mean Corpuscular Hemoglobin 29.4 pg (26-34); Mean Corpuscular Volume 87.5 fl (80-100); Mean Platelet Volume 9.4 fl (7.4-10.4); Monocytes Absolute Auto 0.5 K/mm3 (0.1-0.6); Monocytes Percent Auto 8.9 % (2.6-8.5); Neutrophils Absolute Auto 2.5 K/mm3 (1.3-6.7); Neutrophils Percent Auto 40.2 % (45.5-73.1); Platelet Count Result 362 k/mm3 (150-375); Red Cell Distribution Width 18.6 % (11.5-14.5); White Blood Count 6.1 K/mm3 (4.5-10.0)
[2023-09-30 17:06] LABS: Alanine Aminotransferase 25 U/L (6-35); Albumin Level 4.7 g/dL (3.5-5.1); Alkaline Phosphatase 83 U/L (38-126); Anion Gap 11 mmol/L (8-16); Aspartate Amino Transferase 30 U/L (14-36); Bilirubin,Total 0.5 mg/dL (0.2-1.3); Blood Urea Nitrogen 19 mg/dL (7-17); Carbon Dioxide 26 mmol/L (22-30); Chloride 103 mmol/L (98-107); Estimated Glomerular Filt Rate > 60; Glucose 99 mg/dL (65-110); Lactate Dehydrogenase 181 U/L (120-246); Potassium 4.3 mmol/L (3.4-5.0); Sodium 140 mmol/L (137-145)
[2023-09-30 17:27] LABS: Iron 109 ug/dL (37-170)
[2023-09-30 17:57] LABS: Percent Iron Saturation 29 % (20-50)
[2023-09-30 18:25] LABS: Folic Acid > 20.0 ng/mL (2.76->20); Vitamin B12 > 1000.0 pg/mL (239-931)
[2023-10-03 08:00] LABS: Methylmalonic Acid 115 nmol/L (87-318)
[2023-10-05 18:44] LABS: Soluble Transferrin Receptor 1.75 mg/L (0.76-1.76)
== END 2023-09-30 13:54 | disposition home or self-care (01) ==
LOC: ANHLAB 13:56
PROVIDERS: PCP Internal Medicine; Visit Provider Internal Medicine Hematology & Oncology
DX: D64.9 Anemia, unspecified (principal)
CPT/HCPCS: 36415; 80053; 82607; 82728; 82746; 83540; 83550; 83615; 83921; 84238; 85025

== ENCOUNTER 2024-06-30 11:00 | Outpatient (CLI) | payer MEDICARE, SELFPAY ==
[2024-06-30 15:13] LABS: Basophils Percent Auto 0.7 % (0.2-1.2); Eosinophils Absolute Auto 0.1 K/mm3 (0-0.3); Eosinophils Percent Auto 1.6 % (0-4.4); Hematocrit 46.3 % (37.0-47.0); Hemoglobin 14.9 g/dL (12.0-15.0); Immature Granulocyte Absolute 0.01 K/mm3 (0.00-0.031); Immature Granulocyte Percent A 0.2 % (0-0.5); Lymphocytes Absolute Auto 2.47 K/mm3 (0.9-3.2); Lymphocytes Percent Auto 44.2 % (18.3-44.2); Mean Corpuscular HGB Conc 32.2 g/dl (32-36); Mean Corpuscular Hemoglobin 31.8 pg (26-34); Mean Corpuscular Volume 98.9 fl (80-100); Mean Platelet Volume 10.1 fl (7.4-10.4); Monocytes Absolute Auto 0.5 K/mm3 (0.1-0.6); Monocytes Percent Auto 8.9 % (2.6-8.5); Neutrophils Absolute Auto 2.5 K/mm3 (1.3-6.7); Neutrophils Percent Auto 44.4 % (45.5-73.1); Platelet Count Result 307 k/mm3 (150-375); Red Blood Count 4.68 M/mm3 (4.2-5.4); Red Cell Distribution Width 13.2 % (11.5-14.5); White Blood Count 5.6 K/mm3 (4.5-10.0)
[2024-06-30 16:53] LABS: Alanine Aminotransferase 22 U/L (6-35); Albumin Level 4.3 g/dL (3.5-5.1); Alkaline Phosphatase 85 U/L (38-126); Anion Gap 6 mmol/L (4-12); Aspartate Amino Transferase 73 U/L (14-36); Bilirubin,Total 0.5 mg/dL (0.2-1.3); Blood Urea Nitrogen 15 mg/dL (7-17); Calcium 9.6 mg/dL (8.4-10.2); Carbon Dioxide 31 mmol/L (22-30); Chloride 99 mmol/L (98-107); Estimated Glomerular Filt Rate > 60; Glucose 85 mg/dL (65-110); Potassium 4.6 mmol/L (3.4-5.0); Sodium 136 mmol/L (137-145)
== END 2024-06-30 11:01 | disposition home or self-care (01) ==
PROVIDERS: PCP Internal Medicine; Visit Provider Internal Medicine
DX: D50.0 Iron deficiency anemia secondary to blood loss (chronic) (principal); D50.9 Iron deficiency anemia, unspecified
CPT/HCPCS: 36415; 80053; 82728; 85025

== ENCOUNTER 2024-08-31 14:39 | Outpatient (CLI) | payer MEDICARE, SELFPAY ==
--- NOTE | ~2024-08-31 | XR_ITS ---
XR hand RT min 3V Ordering provider: Jc Crespo DO History: . M19.041 - Primary osteoarthritis, right hand . Comparison: None. FINDINGS: BONES: No acute fracture or dislocation. JOINT SPACES: Narrowing of the proximal and distal interphalangeal joints with marginal osteophytes. Subluxation is seen in the distal interphalangeal joints of the second and fourth fingers. Osteoarthr itic changes of the first carpometacarpal joint. Narrowing of the radiocarpal joint. SOFT TISSUES: Normal. IMPRESSION: No acute osseous abnormality right hand. Polyarticular osteoarthritic changes. Reviewed, dictated and finalized at location A.
== END 2024-08-31 14:40 | disposition home or self-care (01) ==
LOC: GOSHIMG 14:39
PROVIDERS: PCP Internal Medicine; Visit Provider Internal Medicine
DX: M19.041 Primary osteoarthritis, right hand (principal)
CPT/HCPCS: 73130

== ENCOUNTER 2025-08-24 14:45 | Outpatient (CLI) | payer MEDICARE, SELFPAY ==
--- OUTSIDE RECORDS SUMMARY | 2025-08-24 16:39 | XMS_ITS | Clinical Summary ---
Author Organization [facility] Address [address] [place] [address] Care Team Providers Care Bindery Machine Setter/Set Up Operator Name Role Phone Unavailable Primary Care Provider Unavailabl e Allergies No known active allergies Medications acetaminophen (TYLENOL) 325 mg tablet Take 325 mg by mouth every 4 hours as needed. Active pantoprazole (PROTONIX) 20 mg Tablet, Delayed Release (E.C.) Take 20 mg by mouth daily. Active loratadine (CLARITIN) 10 mg tablet Take 10 mg by mouth daily. Active multivitamins with iron Tablet Take 1 Tablet by mouth daily. Active Active Problems No known active problems Family History Medical History Relation Name Comments Lung Cancer Father Diabetes Mother Brain Cancer Sister 1 Lung Cancer Sister 2 Relation Name Status Comments Daughter 1 Alive Daughter 2 Alive Father Mother Sister 1 Sister 2 Alive Son 1 Alive Son 2 Alive Son 3 Social History Tobacco Use Types Packs/Day Years Used Date Smoking Tobacco: Never Smokeless Tobacco: Never Tobacco Cessation:Counseling Given: Not Answered Alcohol Use Standard Drinks/Week Comments No 0 (1 standard drink = 0.6 oz pur e alcohol) Comments No Sex and Gender Information Value Date Recorded Sex Assigned at Not on file Legal Sex Female 11:52 AM ICT PROGRAMMER Gender Identity Not on file Sexual Orientation Not on file Last Filed Vital Signs Vital Sign Reading Time Taken Comments Blood Pressure 132/85 10/15/2023 2:01 PM ICT PROGRAMMER Pulse 105 10/15/2023 2:01 PM ICT PROGRAMMER Temperature 36.1 C (97 F) 10/15/2023 2:01 PM ICT PROGRAMMER Respiratory Rate 10 10/15/2023 2:01 PM ICT PROGRAMMER Oxygen Saturation 98% 10/15/2023 2:01 PM ICT PROGRAMMER Inhaled Oxygen Concentration - - Weight 69.9 kg (154 lb) 10/15/2023 2:01 PM ICT PROGRAMMER Height 162.6 cm (5' 4) 09/30/2023 1:08 PM ICT PROGRAMMER Body Mass Index 26.43 09/30/2023 1:08 PM ICT PROGRAMMER Plan of Treatment Health Maintenance Due Date Last Done Comments DTAP/TDAP/TD VACCINES (1 - Tdap) 1965 PNEUMOCOCCAL VACCINE 50+ YEARS (1 of 1 - PCV) 01/20/19 96 12/12/2012 ZOSTER VACCINE (1 of 2) 01/21/1996 OSTEOPOROSIS SCREENING 2011 RSV VACCINE (60+ or ) (1 - 1-dose 75+ series) 2021 INFLUENZA VACCINE (#1) 2025 Insurance * Guarantor: [employer] [facility] ([employer]) Account Type Relation to Patient Date of Phone Billing Address Corporate Other [address] [address] [address]
--- OUTSIDE RECORDS SUMMARY | 2025-08-24 16:39 | XMS_ITS | Clinical Summary ---
Author Organization [facility] [employer] Address [address] [place] [address] Care Team Providers Care Galley Hand Name Role Phone Cherie Jc Abelino DO Primary Care Provider [phone] Source Comments [facility] [employer],non-owned Affiliates and Associated Physician Practices is amultiple site organization consisting of ambulatory clinics and hospital sitesin [place], [place], [place] and [place]. This disclosure is being madepursuant to the Care Everywhere program and may not contain all information available regarding this patient. Last updated 18.[facility] [employer] Allergies No known active allergies Medications * Be aware that medications may not be up to date on this document. Alwaysverify current medications with the patient. loratadine (Claritin) 10 MG tablet Take 1 (one) tablet by mouth once daily Active calcium carbonate (Tums) 500 MG chew tablet Take by mouth as needed Active oxymetazoline (Afrin) 0.05 % nasal spray by Nasal route. Active acetaminophen (Tylenol) 325 MG tablet Take 1 (one) tablet by mouth every 4 hours as needed Active doxycycline hyclate 100 MG tablet 11/19/2023 Active pantoprazole EC (Protonix) 20 MG tablet Take 1 (one) tablet by mouth once daily Active DULoxetine (Cymbalta) 20 MG capsule Take 1 (one) capsule by mouth once daily 30 capsule 2 01/08/2025 Active Active Problems Problem Noted Date Diagnosed Date Vitamin D deficiency 12/31/2024 Osteopenia 12/31/2024 Hyperlipidemia 12/31/2024 GERD (gastroesophageal reflux disease) Allergic rhinitis 12/31/2024 Pain in left foot 05/05/2021 Immunizations Immunization Administration Dates Next Due PNEUMOCOCCAL PCV VACCINE 12/12/2012 Td (Adult), 2 Lf Tetanus Toxoid, Adsorbed, Pf Social History Tobacco Use Types Packs/Day Years Used Date Smoking Tobacco: Former Cigarettes Smokeless Tobacco: Never Comments:Smoked age 17 Alcohol Use Standard Drinks/Week Comments Not Currently 0 (1 standard drink = 0.6 oz pur e alcohol) PHQ-2 Answer Date Recorded Patient Health Questionnaire-2 Score 0 12/31/2024 Comments Unknown Sex and Gender Information Value Date Recorded Sex Assigned at Not on file Legal Sex Female 7:06 AM CDT Gender Identity Not on file Sexual Orientation Not on file Last Filed Vital Signs Vital Sign Reading Time Taken Comments Blood Pressure 132/68 12/31/2024 9:22 AM HEALTH POLICY NURSE Pulse 72 12/31/2024 9:22 AM HEALTH POLICY NURSE Temperature 36.4 C (97.6 F) 10/13/2024 10:13 AM HEALTH POLICY NURSE Respiratory Rate 14 10/13/2024 10:45 AM HEALTH POLICY NURSE Oxygen Saturation 96% 10/13/2024 10:45 AM HEALTH POLICY NURSE Inhaled Oxygen Concentration - - Weight 56.2 kg (124 lb) 12/31/2024 9:22 AM HEALTH POLICY NURSE Height 170.2 cm (5' 7) 12/31/2024 9:22 AM HEALTH POLICY NURSE Body Mass Index 19.42 12/31/2024 9:22 AM HEALTH POLICY NURSE Plan of Treatment Health Maintenance Due Date Last Done Comments ZOSTER VACCINE (1 of 2) 01/21/1996 DTAP/TDAP/TD VACCINES (1 - Tdap) 11/12/2007 11/11/19 08 PNEUMOCOCCAL VACCINE 50+ (2 of 2 - PCV20 or PCV21) 12/12/2013 12/12/2012 Respiratory Syncytial Virus (RSV) Vaccine Pt: or over 60 yrs (1 - 1-dose 75+ series) 2021 MEDICARE AWV CALENDAR YEAR 2024 COVID-19 VACCINE ( - 2023-2 5 season) 2025 INFLUENZA VACCINE (#1) 2025 BONE DENSITY TESTING Completed 09/12/2022 DEPRESSION SCREENING Completed 12/31/2024 HEPATITIS B VACCINE Aged Out No longe r eligible based on patient's age to complete this topic HIB VACCINE Aged Out No longer eligi ble based on patient's age to complete this topic HPV VACCINE Aged Out No longer eligi ble based on patient's age to complete this topic MENINGOCOCCAL (Group B) VACC INE SHARED DECISION-MAKING Aged Out No longer eligibl e based on patient's age to complete this topic MENINGOCOCCAL GROUPS A/C/Y/W VACCINE Aged Out No longer eligible b ased on patient's age to complete this topic Medical Devices Implanted Type Area Casey Saw Operator Device Identifier Shelf Expiration Date Model / Serial / Lot Kit Bngf 3cc Jun - [id number] Implanted:Qty: 1 on 10/13/2024 by Osiris Burkett MD at [facility] Left: Toe MILI 06/07/2027 [id number] / [id number] / Description:Great Toe Left F oot Sub Bngf Vitoss Bbtrauma Fm 2.5ml Strl Implanted:Qty: 1 on 10/13/2024 by Osiris Burkett MD at [facility] Left: Toe [employer] 05/08/20252101- / [id number] Description:Great Toe Left F oot Wire K Chrlt Darco 1.6mm 150mm 1 Troc Ss Implanted:Qty: 2 on 10/13/2024 by Osiris Burkett MD at [facility] Left: Toe MILI [id number] / / Description:Great Toe Plate Lopro Fsn Mtp Lt 0d Sm Ortholoc Ft Implanted:Qty: 1 on 10/13/2024 by Osiris Burkett MD at [facility] Left: Toe MILI [id number] / / Description:Great Toe Screw 2.7mm 16mm Ft Slf-Tap Lck Pa On Implanted:Qty: 2 on 10/13/2024 by Osiris Burkett MD at [facility] Left: Toe MILI [id number] / / Description:Great Toe Screw 2.7mm 16mm Ft Slf-Tap Pa On Hinkle Implanted:Qty: 1 on 10/13/2024 by Osiris Burkett MD at [facility] Left: Toe [employer] [id number] / / Description:Great Toe Screw 2.7mm 18mm Ft Slf-Tap Lck Pa On Implanted:Qty: 1 on 10/13/2024 by Osiris Burkett MD at [facility] Left: Toe [employer] [id number] / / Description:Great Toe Screw 2.7mm 14mm Ft Slf-Tap Lck On Implanted:Qty: 1 on 10/13/2024 by Osiris Burkett MD at [facility] Left: Toe [employer] [id number] / / Description:Great Toe Mtrx Tissue [facility] 2cc - [id number] Implanted:Qty: 1 on 10/13/2024 by Osiris Burkett MD at [facility] Left: Foot [employer] [id number] 04/20/2029 [id number] / [id number] / [id number] Insurance Care Teams Galley Hand Relationship Specialty Start Date End Date Jc Crespo DO [address] [place] [address] [phone] PCP - General Internal Medicine 09/29/24
--- OUTSIDE RECORDS SUMMARY | 2025-08-24 16:39 | XMS_ITS | Clinical Summary ---
Author Organization [facility] Address [address] [place] [address] Phone Care Team Providers Care Frame Feeder Name Role Phone Stephen Hernández MD Primary Care Provider [phone] Allergies No known active allergies Medications Acetaminophen (TYLENOL PO) Take by mouth as needed. Active Calcium Carbonate Antacid (TUMS PO) Take by mouth as needed. Active Oxymetazoline HCl (NASAL SPRAY NA) by Nasal route. Active Cholecalciferol (VITAMIN D PO) Take by mouth. Active Aspirin 81 MG Tablet Take 81 mg by mouth daily. Active Active Problems Problem Noted Date Diagnosed Date Hyperlipidemia GERD (gastroesophageal reflux disease) Osteopenia Allergic rhinitis Vitamin D deficiency Immunizations Immunization Administration Dates Next Due Pneumococcal PCV, Unspecified Formulation 2012 TD VACCINE 11/11/2007 Social History Tobacco Use Types Packs/Day Years Used Date Smoking Tobacco: Never Smokeless Tobacco: Never Alcohol Use Standard Drinks/Week Comments No 0 (1 standard drink = 0.6 oz pur e alcohol) Comments No Sex and Gender Information Value Date Recorded Sex Assigned at Not on file Legal Sex Female 11:41 PM CDT Gender Identity Not on file Sexual Orientation Not on file Last Filed Vital Signs Vital Sign Reading Time Taken Comments Blood Pressure 130/70 05/12/2018 8:29 AM CDT Pulse 81 05/12/2018 8:29 AM CDT Temperature - - Respiratory Rate 16 05/12/2018 8:29 AM CDT Oxygen Saturation 98% 05/12/2018 8:29 AM CDT Inhaled Oxygen Concentration - - Weight 80.3 kg (177 lb) 05/12/2018 8:29 AM CDT Height 162.6 cm (5' 4) 05/12/2018 8:29 AM CDT Body Mass Index 30.38 05/12/2018 8:29 AM CDT Plan of Treatment Health Maintenance Due Date Last Done Comments Hepatitis C Virus (HCV) Screening 1945 TdaP Immunization 1945 Pneumococcal Immunization (5 0+ years) (1 of 1 - PCV) 01/21/1996 12/12/2012 Zoster Immunization (1 of 2) 01/21/1996 Respiratory Syncytial Virus (RSV) Immunization (Adult) (1 - 1-dose 75+ series) 2021 Influenza Immunization (#1) 2025 SARS-COV-2 Immunization ( - season) 2025 DTaP/Tdap/Td Immunization Discontinued 11/11/2007 Pneumococcal Immunization Combined Discontinued 2012 Colonoscopy Discontinued 12/30/2012 Colorectal Cancer Screening Discontinued Cologuard Discontinued Hepatitis B Immunization Aged Out No longer eligible based on patient's age to complete this topic Human Papillomavirus (HPV) Immunization Aged Out No longer eligible b ased on patient's age to complete this topic Immunochemical Fecal Occult Blood Discontinued Meningococcal Immunization (ACWY) Aged Out No longer eligible based on patient's age to complete this topic Rotavirus Immunization Aged Out No lo nger eligible based on patient's age to complete this topic Procedures Procedure Name Priority Date/Time Associated Diagnosis Comments COLONOSCOPY Routine 12/30/2012 from Last 3 Months or Most Recently Relevant to Health Maintenance Results * COLONOSCOPY (12/30/2012) Benjamin Camacho DO PROCEDURE/MINOR SURGICAL ORDERA BLES Final Result from Last 3 Months or Most Recently Relevant to Health Maintenance Insurance MEDICARE C [employer] Care Teams Frame Feeder Relationship Specialty Start Date End Date Stephen Hernández MD [address] [place] [address] PCP - General Internal Medicine 10/17/15
[2025-08-24 17:30] LABS: Hematocrit 42.1 % (37.0-47.0); Hemoglobin 14.0 g/dL (12.0-15.0); Immature Granulocyte Percent A 0.3 % (0-0.5); Lymphocytes Absolute Auto 2.19 K/mm3 (0.9-3.2); Mean Corpuscular HGB Conc 33.3 g/dl (32-36); Mean Corpuscular Hemoglobin 32.9 pg (26-34); Mean Corpuscular Volume 98.8 fl (80-100); Nucleated Red Blood Cells Absolute Auto 0.000 K/mm3 (0.0-0.012); Nucleated Red Blood Cells Perc 0.0 % (0.0-0.2); Platelet Count Result 356 k/mm3 (150-375); Red Blood Count 4.26 M/mm3 (4.2-5.4); White Blood Count 6.5 K/mm3 (4.5-10.0)
[2025-08-24 18:05] LABS: Alanine Aminotransferase 25 U/L (6-35); Albumin Level 4.5 g/dL (3.5-5.1); Alkaline Phosphatase 104 U/L (38-126); Anion Gap 5 mmol/L (4-12); Aspartate Amino Transferase 46 U/L (14-36); Bilirubin,Total 0.4 mg/dL (0.2-1.3); Blood Urea Nitrogen 30 mg/dL (7-17); Calcium 9.8 mg/dL (8.4-10.2); Carbon Dioxide 28 mmol/L (22-30); Chloride 100 mmol/L (98-107); Estimated Glomerular Filt Rate 55; Glucose 94 mg/dL (65-110); Potassium 4.6 mmol/L (3.4-5.0); Sodium 133 mmol/L (137-145); Total Protein 7.7 g/dL (6.3-8.2)
[2025-08-24 18:19] LABS: Ferritin 58.50 ng/mL (11.1-264)
== END 2025-08-24 14:46 | disposition home or self-care (01) ==
LOC: ANHGOSHLAB 14:46
PROVIDERS: PCP Internal Medicine; Visit Provider Internal Medicine
DX: D50.0 Iron deficiency anemia secondary to blood loss (chronic) (principal); E55.9 Vitamin D deficiency, unspecified; I73.9 Peripheral vascular disease, unspecified; Z87.19 Personal history of other diseases of the digestive system; Z86.39 Personal history of other endocrine, nutritional and metabolic disease
CPT/HCPCS: 36415; 80053; 82306; 82728; 85025